=== PATIENT | male | born 1985 | race American Indian/Alaskan Native ===

== ENCOUNTER 2017-10-28 19:48 | Emergency (ER) | payer OTHER ==
[2017-10-28 20:20] VITALS: BP 124/80; PULSE 81; RESP 16; TEMP 98.2; O2SAT 100
--- NOTE | 2017-10-28 21:25 | ED PDOC ---
HPI: Head Injury Time Seen by Provider: 10/28/17 20:57 Chief Complaint (Nursing): Abnormal Skin Integrity History Per: Patient History/Exam Limitations: no limitations Injury Occurred (Timing): Hours Ago: Onset/Duration Of Symptoms: Hrs Patient States: Struck With Object Additional History Per: Patient Additional Complaint(s): Patient was practicing [employer] and hit his head against another person's head without LOC, vomiting, change in mental status. Did not know he was injured till he saw the blood dripping. Past Medical History Reviewed: Historical Data, Nursing Documentation, Vital Signs Vital Signs: Last Vital Signs Temp 98.2 F 10/28/17 20:18 Pulse 81 10/28/17 20:18 Resp 16 10/28/17 20:18 BP 124/80 10/28/17 20:18 Pulse Ox 100 10/28/17 20:18 - Medical History PMH: No Chronic Diseases - Family History Family History: States: Unknown Family Hx - Allergies Allergies/Adverse Reactions: Allergies Allergy/AdvReac Type Severity Reaction Status Date / Time No Known Allergies Allergy Verified 10/28/17 20:18 Review of Systems ROS Statement: Except As Marked, All Systems Reviewed And Found Negative Physical Exam - Reviewed Nursing Documentation Reviewed: Yes Vital Signs Reviewed: Yes - Physical Exam Appears: Positive for: Well, Non-toxic, No Acute Distress Head Exam: Negative for: ATRAUMATIC (3cm linear laceration to forehead) Skin: Positive for: Normal Color, Warm, DRY Eye Exam: Positive for: Normal appearance, EOMI, PERRL Neurologic/Psych: Positive for: Alert, healthcare manager II-XII, Oriented. Negative for: Motor/Sensory Deficits - ECG O2 Sat by Pulse Oximetry: 100 Pulse Ox Interpretation: Normal Medical Decision Making Medical Decision Making: Patient with head laceration, head injury -no need for CT at this time given normal neuro, normal GCS, no LOC/vomiting/ change in mental status -will repair with dermabond and d/c -patient will discuss need for tdap with his PMD Procedures - Laceration/Wound Repair Head Wound's Depth, Shape: superficial Wound Explored: clean Wound Debrided: minimal Wound Repaired With: Skin adhesive Wound Complexity: Simple Disposition - Clinical Impression Clinical Impression: Head injury, Laceration - Disposition Referrals: Jerad Thornton MD [Staff Provider] - Disposition: Routine/Home Disposition Time: 21:28 Condition: STABLE Instructions: Minor Head Injury (DC), Laceration Repair With Glue (DC)
== END 2017-10-28 21:45 | disposition home or self-care (01) ==
LOC: H.ER 19:48
DX: S01.81XA Laceration without foreign body of other part of head, initial encounter (principal); W22.8XXA Striking against or struck by other objects, initial encounter; Y92.89 Other specified places as the place of occurrence of the external cause